=== PATIENT | male | born 1955 | race Caucasian/White ===

== ENCOUNTER 2021-07-08 09:35 | Emergency (ER) | payer MEDICARE ==
[~2021-07-08] VITALS: Ht 185.4 cm; Wt 45.4 kg
[2021-07-08 12:16] VITALS: BP 115/90
== END 2021-07-08 13:16 ==
LOC: ER 10:00
DX: J40 Bronchitis, not specified as acute or chronic (principal); N18.9 Chronic kidney disease, unspecified; Z93.0 Tracheostomy status; Z20.822 Contact with and (suspected) exposure to COVID-19
CPT/HCPCS: 71045; 99284

== ENCOUNTER 2021-07-08 18:03 | Inpatient (IN) | payer MEDICARE ==
[~2021-07-08] VITALS: Ht 188 cm; Wt 54.0 kg
[2021-07-08] MEDS ORDERED: ALBUTEROL SULF 0.083% NEB SOLN 3 ML NEB NEB STA (18:07)
[2021-07-08] MEDS ORDERED: IPRATROPIUM BROMIDE 0.02% 2.5 ML NEB NEB ONE (18:15)
[2021-07-08 18:35] LABS: BASOPHILS # (AUTO) 0.1 (0.0-0.1); BASOPHILS % 0.6 % (0.0-1.0); EOSINOPHILS # (AUTO) 0.1 (0.0-0.4); EOSINOPHILS % 0.6 % (0.0-6.0); HEMATOCRIT 35.2 % (38.2-49.6); HEMOGLOBIN 11.2 g/dL (14.0-18.0); LYMPHOCYTES # (AUTO) 1.1 (1.0-3.2); MEAN CORPUSCULAR HEMOGLOBIN 30.2 pg (28-32); MEAN CORPUSCULAR HGB CONC 31.8 g/dL (31-35); MEAN CORPUSCULAR VOLUME 94.9 fL (81-99); MONOCYTES # (AUTO) 0.7 (0.2-0.8); MONOCYTES % 6.8 % (4.4-11.3); NEUTROPHILS # (AUTO) 8.3 (2.1-6.9); NEUTROPHILS % 80.6 % (38.7-80.0); PLATELET COUNT 319 x10e3/uL (140-360); RED BLOOD COUNT 3.71 x10e6/uL (4.3-5.7); RED CELL DISTRIBUTION WIDTH 14.4 % (11.7-14.4)
[2021-07-08 18:50] LABS: ALBUMIN/GLOBULIN RATIO 0.4 (0.8-2.0); ANION GAP 17.9 mmol/L (8-16); CALCIUM 10.8 mg/dL (8.4-10.2); CREATININE, SERUM 0.97 mg/dL (0.72-1.25)
[2021-07-08 18:56] LABS: CREATINE KINASE MB 1.5 ng/mL (0-5.0)
[2021-07-08 18:57] LABS: POTASSIUM 2.9 mmol/L (3.5-5.1)
[2021-07-08] MEDS ORDERED: POTASSIUM CHLORIDE 20MEQ/15ML UDC PEG ONE (19:00)
[2021-07-08] MEDS ORDERED: CEFTRIAXONE 1 GM in SODIUM CHLORIDE 0.9% 50ML 50 ML IV ONE (19:00)
[2021-07-08] MEDS ORDERED: SODIUM CHLORIDE 0.9% 500ML 500 ML IV ONE (19:00)
[2021-07-08] MEDS ORDERED: SODIUM CHLORIDE 0.9% 500ML 500 ML ONE (19:12)
[2021-07-08] MEDS ORDERED: KCL 20MEQ/.9 SOD CHL 1,000 ML IV ONE (21:00)
[2021-07-08] MEDS ORDERED: DIGOXIN INJ 0.25 MG/ML 2 ML AMP IV ONE (21:15)
[2021-07-08] MEDS ORDERED: METOPROLOL TARTRATE INJ 1 MG/ML VIAL IV PRN (21:15)
[2021-07-08] MEDS ORDERED: METOPROLOL TARTRATE INJ 1 MG/ML VIAL IV ONE (21:15)
[2021-07-08] MEDS ORDERED: Vancomycin IV 1 GM in SODIUM CHLORIDE 0.9% 250ML 250 ML IV ONE (21:15)
[2021-07-08 21:55] LABS: ABG PCO2 47 mmHg (35-45); ABG PH 7.45 (7.35-7.45); ABG PO2 53 mmHg (80-105)
[2021-07-08 21:56] LABS: ABG HCO3 33 mmol/L (22-26); ABG TCO2 34
[2021-07-08] MEDS: CEFEPIME 1 GM in SODIUM CHLORIDE 0.9% 50ML 50 ML IV SCH (22:13)
[2021-07-08] MEDS: ALBUTEROL SULF 0.083% NEB SOLN 3 ML NEB NEB SCH (23:00)
[2021-07-09] VITALS (7 sets, daily range): BP systolic 111–156; BP diastolic 78–100
[2021-07-09] MEDS: IPRATROPIUM BROMIDE 0.02% 2.5 ML NEB NEB SCH ×5 (01:00→22:00)
[2021-07-09] MEDS: ALBUTEROL SULF 0.083% NEB SOLN 3 ML NEB NEB SCH ×6 (03:00→22:00)
[2021-07-09] MEDS ORDERED: IOPAMIDOL 370 MG/ML 200 ML INFUS..BTL INJ ONE (05:00)
[2021-07-09] MEDS ORDERED: SODIUM CHLORIDE 0.9% 50ML 50 ML ONE (05:01)
[2021-07-09 05:43] LABS: BASOPHILS # (AUTO) 0.1 (0.0-0.1); BASOPHILS % 0.7 % (0.0-1.0); EOSINOPHILS # (AUTO) 0.1 (0.0-0.4); EOSINOPHILS % 0.9 % (0.0-6.0); HEMOGLOBIN 9.4 g/dL (14.0-18.0); LYMPHOCYTES # (AUTO) 1.6 (1.0-3.2); LYMPHOCYTES % 19.6 % (18.0-39.1); MEAN CORPUSCULAR HEMOGLOBIN 30.7 pg (28-32); MEAN CORPUSCULAR HGB CONC 32.4 g/dL (31-35); MEAN CORPUSCULAR VOLUME 94.8 fL (81-99); MONOCYTES # (AUTO) 0.6 (0.2-0.8); NEUTROPHILS # (AUTO) 5.8 (2.1-6.9); NEUTROPHILS % 71.3 % (38.7-80.0); PLATELET COUNT 314 x10e3/uL (140-360); RED BLOOD COUNT 3.06 x10e6/uL (4.3-5.7); RED CELL DISTRIBUTION WIDTH 14.5 % (11.7-14.4)
[2021-07-09 06:01] LABS: ANION GAP 15.4 mmol/L (8-16); CALCIUM 10.1 mg/dL (8.4-10.2); CREATININE, SERUM 0.8 mg/dL (0.72-1.25); POTASSIUM 3.4 mmol/L (3.5-5.1)
[2021-07-09] MEDS: LEVOTHYROXINE SODIUM 100 MCG TAB PEG SCH (06:43)
[2021-07-09] MEDS: ACETYLCYSTEINE 20% INHAL SOLN 30 ML VIAL INH SCH ×2 (07:02→21:00)
[2021-07-09] MEDS: FAMOTIDINE 20 MG TAB PEG SCH ×2 (07:55→19:28)
[2021-07-09] MEDS: MIDODRINE 2.5 MG TAB PEG SCH ×3 (07:55→16:00)
[2021-07-09] MEDS: FERROUS SULFATE 325 MG TAB PEG SCH ×2 (07:55→19:28)
[2021-07-09] MEDS: DOCUSATE SODIUM 100 MG CAP PEG SCH ×2 (07:55→17:00)
[2021-07-09] MEDS: CEFEPIME 1 GM in SODIUM CHLORIDE 0.9% 50ML 50 ML IV SCH ×2 (07:55→22:26)
[2021-07-09] MEDS: MULTIVITAMINS 120ML BOTTLE PEG SCH (07:56)
[2021-07-09] MEDS: OLANZAPINE 5 MG TAB PEG SCH ×2 (09:00→22:26)
[2021-07-09] MEDS: ENOXAPARIN SOD INJ 40 MG/0.4 ML SYR SC SCH (19:28)
[2021-07-10] VITALS (28 sets, daily range): BP systolic 68–135; BP diastolic 51–94
[2021-07-10] MEDS ORDERED: ONDANSETRON ODT4 MG GT (01:18)
[2021-07-10] MEDS ORDERED: ULTRAM50 MG GT (01:18)
[2021-07-10] MEDS ORDERED: LEVOTHYROXINE100 MC1 GT (01:18)
[2021-07-10] MEDS ORDERED: DULCOLAX10 MG PR (01:18)
[2021-07-10] MEDS ORDERED: THIAMINE H100 MG/1 M GT (01:18)
[2021-07-10] MEDS ORDERED: LUBRICANT EYE3.5 G1 (01:18)
[2021-07-10] MEDS ORDERED: ASPIRIN81 MG GT (01:18)
[2021-07-10] MEDS ORDERED: ADMELOG SO100 UNIT/1 (01:18)
[2021-07-10] MEDS ORDERED: ACIDOPHILUS1 EAC1 GT (01:18)
[2021-07-10] MEDS ORDERED: CHOLECALCIFEROL1 GM GT (01:18)
[2021-07-10] MEDS ORDERED: HYDRALAZINE HCL10 MG GT (01:18)
[2021-07-10] MEDS ORDERED: ACETAMINOPHEN325 M1 GT (01:18)
[2021-07-10] MEDS ORDERED: LOVENOX30 MG/0.3 SC (01:18)
[2021-07-10] MEDS ORDERED: CETIRIZINE HCL5 MG GT (01:18)
[2021-07-10] MEDS ORDERED: TRANSDERM-SCOP1 EACH TD (01:18)
[2021-07-10] MEDS ORDERED: FOLIC ACID-VIT1 EACH GT (01:18)
[2021-07-10] MEDS ORDERED: ACETYLCYST200 MG/1 M NEB (01:18)
[2021-07-10] MEDS ORDERED: REFRESH PLUS1 EACH (01:18)
[2021-07-10] MEDS ORDERED: FERROUS SULFAT324 MG GT (01:18)
[2021-07-10] MEDS ORDERED: DIGOXIN125 MCG GT (01:18)
[2021-07-10] MEDS ORDERED: MIDODRINE HCL5 MG GT (01:18)
[2021-07-10] MEDS ORDERED: MULTI-VITAMIN1 EACH GT (01:18)
[2021-07-10] MEDS ORDERED: LIDOCAINE 4% TOP (01:18)
[2021-07-10] MEDS ORDERED: DOXYCYCLINE HY100 MG GT (01:18)
[2021-07-10] MEDS ORDERED: OLANZAPINE5 MG GT ×2 (01:18)
[2021-07-10] MEDS ORDERED: LOPERAMIDE2 MG GT (01:18)
[2021-07-10] MEDS ORDERED: NICOTINE PATCH1 EAC1 TD (01:18)
[2021-07-10] MEDS ORDERED: RAMELTEON8 MG GT (01:18)
[2021-07-10] MEDS ORDERED: FAMOTIDINE20 MG GT (01:18)
[2021-07-10] MEDS ORDERED: IPRATROPIU0.2 MG/1 M INH (01:18)
[2021-07-10] MEDS: ALBUTEROL SULF 0.083% NEB SOLN 3 ML NEB NEB SCH ×5 (02:05→19:00)
[2021-07-10] MEDS: LEVOTHYROXINE SODIUM 100 MCG TAB PEG SCH (06:22)
[2021-07-10] MEDS: FAMOTIDINE 20 MG TAB PEG SCH ×2 (07:30→17:22)
[2021-07-10] MEDS: IPRATROPIUM BROMIDE 0.02% 2.5 ML NEB NEB SCH ×3 (07:53→19:00)
[2021-07-10] MEDS: MIDODRINE 2.5 MG TAB PEG SCH ×3 (08:00→17:22)
[2021-07-10] MEDS: FERROUS SULFATE 325 MG TAB PEG SCH ×2 (08:00→17:22)
[2021-07-10] MEDS: DOCUSATE SODIUM 100 MG CAP PEG SCH (08:44)
[2021-07-10] MEDS: OLANZAPINE 5 MG TAB PEG SCH ×2 (08:44→21:25)
[2021-07-10] MEDS: MULTIVITAMINS 120ML BOTTLE PEG SCH (08:44)
[2021-07-10] MEDS: CEFEPIME 1 GM in SODIUM CHLORIDE 0.9% 50ML 50 ML IV SCH ×2 (10:18→21:25)
[2021-07-10] MEDS ORDERED: MIDAZOLAM HCL 2 MG/2 ML VIAL ONE (13:00)
[2021-07-10] MEDS ORDERED: LORAZEPAM INJ 2 MG/ML VIAL IV ONE (16:00)
[2021-07-10] MEDS: ENOXAPARIN SOD INJ 40 MG/0.4 ML SYR SC SCH (17:22)
[2021-07-10] MEDS ORDERED: DEXMEDETOMIDINE 400MCG/NS100ML 100 ML IV PRN (17:30)
[2021-07-10] MEDS: ACETYLCYSTEINE 200 MG/ML 4ML VIAL INH SCH (19:00)
[2021-07-11] VITALS (24 sets, daily range): BP systolic 70–104; BP diastolic 51–72
[2021-07-11 05:01] LABS: BASOPHILS # (AUTO) 0.1 (0.0-0.1); BASOPHILS % 0.8 % (0.0-1.0); EOSINOPHILS # (AUTO) 0.1 (0.0-0.4); EOSINOPHILS % 0.5 % (0.0-6.0); HEMATOCRIT 31.4 % (38.2-49.6); LYMPHOCYTES # (AUTO) 1.7 (1.0-3.2); LYMPHOCYTES % 15.8 % (18.0-39.1); MEAN CORPUSCULAR HEMOGLOBIN 30.5 pg (28-32); MEAN CORPUSCULAR HGB CONC 31.8 g/dL (31-35); MEAN CORPUSCULAR VOLUME 95.7 fL (81-99); MONOCYTES # (AUTO) 0.6 (0.2-0.8); MONOCYTES % 5.9 % (4.4-11.3); NEUTROPHILS # (AUTO) 8.3 (2.1-6.9); NEUTROPHILS % 76.5 % (38.7-80.0); PLATELET COUNT 332 x10e3/uL (140-360); RED BLOOD COUNT 3.28 x10e6/uL (4.3-5.7); RED CELL DISTRIBUTION WIDTH 14.6 % (11.7-14.4)
[2021-07-11 05:37] LABS: ALBUMIN 2.6 g/dL (3.5-5.0); ALBUMIN/GLOBULIN RATIO 0.4 (0.8-2.0); ANION GAP 17.8 mmol/L (8-16); CREATININE, SERUM 0.91 mg/dL (0.72-1.25); POTASSIUM 3.8 mmol/L (3.5-5.1)
[2021-07-11] MEDS: LEVOTHYROXINE SODIUM 100 MCG TAB PEG SCH (06:00)
[2021-07-11] MEDS: ALBUTEROL SULF 0.083% NEB SOLN 3 ML NEB NEB SCH ×5 (07:01→23:30)
[2021-07-11] MEDS: IPRATROPIUM BROMIDE 0.02% 2.5 ML NEB NEB SCH ×3 (07:01→19:25)
[2021-07-11] MEDS: ACETYLCYSTEINE 200 MG/ML 4ML VIAL INH SCH ×2 (07:01→19:25)
[2021-07-11] MEDS: FERROUS SULFATE 325 MG TAB PEG SCH ×2 (09:15→16:17)
[2021-07-11] MEDS: FAMOTIDINE 20 MG TAB PEG SCH ×2 (09:15→16:17)
[2021-07-11] MEDS: CEFEPIME 1 GM in SODIUM CHLORIDE 0.9% 50ML 50 ML IV SCH ×2 (09:16→21:14)
[2021-07-11] MEDS: BALSAM PERU/CASTOR OIL 60 GM OINT...G. TP SCH (09:16)
[2021-07-11] MEDS: MIDODRINE 2.5 MG TAB PEG SCH ×3 (09:16→16:17)
[2021-07-11] MEDS: OLANZAPINE 5 MG TAB PEG SCH ×2 (09:16→21:14)
[2021-07-11 12:00] LABS: ABG HCO3 25 mmol/L (22-26); ABG PCO2 40 mmHg (35-45); ABG PH 7.39 (7.35-7.45); ABG PO2 52 mmHg (80-105); ABG TCO2 26
[2021-07-11] MEDS: ENOXAPARIN SOD INJ 40 MG/0.4 ML SYR SC SCH (16:17)
[2021-07-12] VITALS (17 sets, daily range): BP systolic 73–127; BP diastolic 51–83
[2021-07-12] MEDS: IPRATROPIUM BROMIDE 0.02% 2.5 ML NEB NEB SCH ×4 (02:40→20:05)
[2021-07-12] MEDS: ALBUTEROL SULF 0.083% NEB SOLN 3 ML NEB NEB SCH ×7 (02:40→22:54)
[2021-07-12 05:15] LABS: BASOPHILS # (AUTO) 0.1 (0.0-0.1); BASOPHILS % 0.7 % (0.0-1.0); EOSINOPHILS # (AUTO) 0.4 (0.0-0.4); EOSINOPHILS % 4.9 % (0.0-6.0); HEMATOCRIT 28.7 % (38.2-49.6); LYMPHOCYTES # (AUTO) 1.5 (1.0-3.2); LYMPHOCYTES % 18.8 % (18.0-39.1); MEAN CORPUSCULAR HEMOGLOBIN 30.4 pg (28-32); MEAN CORPUSCULAR HGB CONC 31.4 g/dL (31-35); MONOCYTES # (AUTO) 0.6 (0.2-0.8); MONOCYTES % 6.8 % (4.4-11.3); NEUTROPHILS # (AUTO) 5.6 (2.1-6.9); NEUTROPHILS % 68.4 % (38.7-80.0); PLATELET COUNT 288 x10e3/uL (140-360); RED BLOOD COUNT 2.96 x10e6/uL (4.3-5.7); RED CELL DISTRIBUTION WIDTH 14.9 % (11.7-14.4)
[2021-07-12 05:42] LABS: ALBUMIN 2.5 g/dL (3.5-5.0); ALBUMIN/GLOBULIN RATIO 0.4 (0.8-2.0); ANION GAP 15.3 mmol/L (8-16); CALCIUM 10.2 mg/dL (8.4-10.2); CREATININE, SERUM 0.83 mg/dL (0.72-1.25); POTASSIUM 3.3 mmol/L (3.5-5.1)
[2021-07-12] MEDS: LEVOTHYROXINE SODIUM 100 MCG TAB PEG SCH (06:30)
[2021-07-12] MEDS: ACETYLCYSTEINE 200 MG/ML 4ML VIAL INH SCH ×2 (08:14→20:05)
[2021-07-12] MEDS: FERROUS SULFATE 325 MG TAB PEG SCH ×2 (08:26→17:21)
[2021-07-12] MEDS: OLANZAPINE 5 MG TAB PEG SCH ×2 (08:26→21:18)
[2021-07-12] MEDS: MIDODRINE 2.5 MG TAB PEG SCH ×3 (08:26→16:08)
[2021-07-12] MEDS: MULTIVITAMINS 5 ML LIQUID PEG SCH (08:26)
[2021-07-12] MEDS: BALSAM PERU/CASTOR OIL 60 GM OINT...G. TP SCH (08:26)
[2021-07-12] MEDS: FAMOTIDINE 20 MG TAB PEG SCH (08:26)
[2021-07-12] MEDS: CEFEPIME 1 GM in SODIUM CHLORIDE 0.9% 50ML 50 ML IV SCH ×2 (08:26→21:21)
[2021-07-12] MEDS ORDERED: KCL 20 MEQ PACKET/ ORAL SOLN NG ONE (15:15)
[2021-07-12] MEDS ORDERED: SODIUM CHLORIDE 0.9% 250ML 250 ML ONE (16:50)
[2021-07-12] MEDS: ENOXAPARIN SOD INJ 40 MG/0.4 ML SYR SC SCH (17:21)
[2021-07-12] MEDS: FAMOTIDINE 20 MG/2 ML VIAL IV SCH (21:18)
[2021-07-13] VITALS (17 sets, daily range): BP systolic 93–127; BP diastolic 67–82
[2021-07-13] MEDS: ALBUTEROL SULF 0.083% NEB SOLN 3 ML NEB NEB SCH ×7 (03:20→19:30)
[2021-07-13] MEDS: IPRATROPIUM BROMIDE 0.02% 2.5 ML NEB NEB SCH ×4 (03:20→18:30)
[2021-07-13] MEDS: LEVOTHYROXINE SODIUM 100 MCG TAB PEG SCH (06:00)
[2021-07-13] MEDS: ACETYLCYSTEINE 200 MG/ML 4ML VIAL INH SCH ×2 (07:32→18:30)
[2021-07-13] MEDS: BALSAM PERU/CASTOR OIL 60 GM OINT...G. TP SCH (07:33)
[2021-07-13] MEDS: FERROUS SULFATE 325 MG TAB PEG SCH ×2 (08:34→16:15)
[2021-07-13] MEDS: MIDODRINE 2.5 MG TAB PEG SCH ×4 (08:34→16:14)
[2021-07-13] MEDS: OLANZAPINE 5 MG TAB PEG SCH ×2 (08:40→21:25)
[2021-07-13] MEDS: CEFEPIME 1 GM in SODIUM CHLORIDE 0.9% 50ML 50 ML IV SCH ×2 (08:40→21:25)
[2021-07-13] MEDS: MULTIVITAMINS 5 ML LIQUID PEG SCH (08:40)
[2021-07-13] MEDS: FAMOTIDINE 20 MG/2 ML VIAL IV SCH ×2 (08:40→16:14)
[2021-07-13] MEDS: ENOXAPARIN SOD INJ 40 MG/0.4 ML SYR SC SCH (16:15)
[2021-07-13] MEDS: EYE LUBRICANT OPTH OINT 3.5GM TUBE OP SCH (16:15)
[2021-07-14] VITALS (27 sets, daily range): BP systolic 89–129; BP diastolic 60–82
[2021-07-14] MEDS: ALBUTEROL SULF 0.083% NEB SOLN 3 ML NEB NEB SCH ×5 (02:09→18:57)
[2021-07-14] MEDS: IPRATROPIUM BROMIDE 0.02% 2.5 ML NEB NEB SCH ×4 (02:09→18:57)
[2021-07-14] MEDS: LEVOTHYROXINE SODIUM 100 MCG TAB PEG SCH (06:34)
[2021-07-14] MEDS: ACETYLCYSTEINE 200 MG/ML 4ML VIAL INH SCH ×2 (08:39→18:57)
[2021-07-14] MEDS: MIDODRINE 2.5 MG TAB PEG SCH (08:41)
[2021-07-14] MEDS: FERROUS SULFATE 325 MG TAB PEG SCH ×2 (08:41→16:09)
[2021-07-14] MEDS: OLANZAPINE 5 MG TAB PEG SCH ×2 (08:42→21:30)
[2021-07-14] MEDS: MULTIVITAMINS 5 ML LIQUID PEG SCH (08:42)
[2021-07-14] MEDS: FAMOTIDINE 20 MG/2 ML VIAL IV SCH ×2 (08:42→16:09)
[2021-07-14] MEDS: CEFEPIME 1 GM in SODIUM CHLORIDE 0.9% 50ML 50 ML IV SCH ×2 (08:42→21:30)
[2021-07-14] MEDS: EYE LUBRICANT OPTH OINT 3.5GM TUBE OP SCH ×2 (08:42→15:44)
[2021-07-14] MEDS: BALSAM PERU/CASTOR OIL 60 GM OINT...G. TP SCH (08:42)
[2021-07-14] MEDS ORDERED: IPRATROPIUM BROMIDE 0.02% 2.5 ML NEB ONE ×2 (09:10→10:59)
[2021-07-14 10:40] LABS: ABG HCO3 30 mmol/L (22-26); ABG PCO2 47 mmHg (35-45); ABG PH 7.41 (7.35-7.45); ABG PO2 89 mmHg (80-105); ABG TCO2 31
[2021-07-14] MEDS: MIDODRINE HCL 5 MG TABLET PEG SCH ×2 (11:59→15:34)
[2021-07-14] MEDS: ENOXAPARIN SOD INJ 40 MG/0.4 ML SYR SC SCH (16:09)
[2021-07-15] VITALS (25 sets, daily range): BP systolic 82–134; BP diastolic 58–78
[2021-07-15] MEDS: ALBUTEROL SULF 0.083% NEB SOLN 3 ML NEB NEB SCH ×7 (00:22→23:25)
[2021-07-15] MEDS: IPRATROPIUM BROMIDE 0.02% 2.5 ML NEB NEB SCH ×4 (03:44→20:00)
[2021-07-15] MEDS: LEVOTHYROXINE SODIUM 100 MCG TAB PEG SCH (06:07)
[2021-07-15] MEDS: ACETYLCYSTEINE 200 MG/ML 4ML VIAL INH SCH ×2 (07:45→20:00)
[2021-07-15] MEDS ORDERED: IPRATROPIUM BROMIDE 0.02% 2.5 ML NEB ONE ×2 (08:01→15:35)
[2021-07-15] MEDS: MIDODRINE HCL 5 MG TABLET PEG SCH ×3 (08:02→16:10)
[2021-07-15] MEDS: FERROUS SULFATE 325 MG TAB PEG SCH ×2 (08:02→16:45)
[2021-07-15] MEDS: MULTIVITAMINS 5 ML LIQUID PEG SCH (08:09)
[2021-07-15] MEDS: FAMOTIDINE 20 MG/2 ML VIAL IV SCH ×2 (08:09→16:45)
[2021-07-15] MEDS: CEFEPIME 1 GM in SODIUM CHLORIDE 0.9% 50ML 50 ML IV SCH ×2 (08:09→20:50)
[2021-07-15] MEDS: EYE LUBRICANT OPTH OINT 3.5GM TUBE OP SCH ×2 (08:09→16:33)
[2021-07-15] MEDS: BALSAM PERU/CASTOR OIL 60 GM OINT...G. TP SCH (08:09)
[2021-07-15] MEDS: OLANZAPINE 5 MG TAB PEG SCH ×2 (08:09→20:50)
[2021-07-15] MEDS: ACETAMINOPHEN 325 MG TAB PEG PRN (13:32)
[2021-07-15] MEDS: ENOXAPARIN SOD INJ 40 MG/0.4 ML SYR SC SCH (16:45)
[2021-07-16] VITALS (24 sets, daily range): BP systolic 89–130; BP diastolic 64–80
[2021-07-16] MEDS: ALBUTEROL SULF 0.083% NEB SOLN 3 ML NEB NEB SCH ×6 (02:30→23:40)
[2021-07-16] MEDS: IPRATROPIUM BROMIDE 0.02% 2.5 ML NEB NEB SCH ×4 (02:30→20:10)
[2021-07-16] MEDS: LEVOTHYROXINE SODIUM 100 MCG TAB PEG SCH (05:33)
[2021-07-16 06:33] LABS: BASOPHILS # (AUTO) 0.1 (0.0-0.1); EOSINOPHILS # (AUTO) 0.2 (0.0-0.4); EOSINOPHILS % 2.5 % (0.0-6.0); HEMATOCRIT 30.1 % (38.2-49.6); HEMOGLOBIN 9.7 g/dL (14.0-18.0); LYMPHOCYTES # (AUTO) 1.4 (1.0-3.2); LYMPHOCYTES % 16.6 % (18.0-39.1); MEAN CORPUSCULAR HEMOGLOBIN 30.5 pg (28-32); MEAN CORPUSCULAR HGB CONC 32.2 g/dL (31-35); MEAN CORPUSCULAR VOLUME 94.7 fL (81-99); MONOCYTES # (AUTO) 0.5 (0.2-0.8); MONOCYTES % 6.3 % (4.4-11.3); NEUTROPHILS # (AUTO) 6.1 (2.1-6.9); PLATELET COUNT 313 x10e3/uL (140-360); RED BLOOD COUNT 3.18 x10e6/uL (4.3-5.7); RED CELL DISTRIBUTION WIDTH 14.4 % (11.7-14.4)
[2021-07-16 06:39] LABS: ALBUMIN 2.3 g/dL (3.5-5.0); ALBUMIN/GLOBULIN RATIO 0.4 (0.8-2.0); ANION GAP 13.4 mmol/L (8-16); CALCIUM 10.3 mg/dL (8.4-10.2); CREATININE, SERUM 0.75 mg/dL (0.72-1.25); POTASSIUM 4.4 mmol/L (3.5-5.1)
[2021-07-16] MEDS: ACETYLCYSTEINE 200 MG/ML 4ML VIAL INH SCH ×2 (07:02→20:10)
[2021-07-16] MEDS ORDERED: IPRATROPIUM BROMIDE 0.02% 2.5 ML NEB ONE ×3 (07:28→14:19)
[2021-07-16] MEDS: FERROUS SULFATE 325 MG TAB PEG SCH ×2 (08:03→16:05)
[2021-07-16] MEDS: MIDODRINE HCL 5 MG TABLET PEG SCH ×3 (08:03→15:54)
[2021-07-16] MEDS: FAMOTIDINE 20 MG/2 ML VIAL IV SCH ×2 (08:03→14:40)
[2021-07-16] MEDS: CEFEPIME 1 GM in SODIUM CHLORIDE 0.9% 50ML 50 ML IV SCH ×2 (08:03→22:31)
[2021-07-16] MEDS: OLANZAPINE 5 MG TAB PEG SCH ×2 (08:04→22:31)
[2021-07-16] MEDS: EYE LUBRICANT OPTH OINT 3.5GM TUBE OP SCH ×2 (08:04→16:05)
[2021-07-16] MEDS: MULTIVITAMINS 5 ML LIQUID PEG SCH (08:04)
[2021-07-16] MEDS: BALSAM PERU/CASTOR OIL 60 GM OINT...G. TP SCH (08:04)
[2021-07-16] MEDS: ACETAMINOPHEN 325 MG TAB PEG PRN (11:51)
[2021-07-17] VITALS (24 sets, daily range): BP systolic 90–129; BP diastolic 54–79
[2021-07-17] MEDS: ALBUTEROL SULF 0.083% NEB SOLN 3 ML NEB NEB SCH ×6 (00:20→20:00)
[2021-07-17] MEDS: IPRATROPIUM BROMIDE 0.02% 2.5 ML NEB NEB SCH ×4 (01:00→20:00)
[2021-07-17] MEDS: LEVOTHYROXINE SODIUM 100 MCG TAB PEG SCH (06:17)
[2021-07-17 06:31] LABS: BASOPHILS # (AUTO) 0.1 (0.0-0.1); EOSINOPHILS # (AUTO) 0.2 (0.0-0.4); EOSINOPHILS % 2.9 % (0.0-6.0); HEMATOCRIT 28.9 % (38.2-49.6); HEMOGLOBIN 9.3 g/dL (14.0-18.0); LYMPHOCYTES # (AUTO) 1.4 (1.0-3.2); LYMPHOCYTES % 22.5 % (18.0-39.1); MEAN CORPUSCULAR HEMOGLOBIN 30.2 pg (28-32); MEAN CORPUSCULAR HGB CONC 32.2 g/dL (31-35); MEAN CORPUSCULAR VOLUME 93.8 fL (81-99); MONOCYTES # (AUTO) 0.5 (0.2-0.8); MONOCYTES % 7.6 % (4.4-11.3); NEUTROPHILS # (AUTO) 4.1 (2.1-6.9); NEUTROPHILS % 65.7 % (38.7-80.0); PLATELET COUNT 282 x10e3/uL (140-360); RED BLOOD COUNT 3.08 x10e6/uL (4.3-5.7); RED CELL DISTRIBUTION WIDTH 14.4 % (11.7-14.4)
[2021-07-17 06:52] LABS: ANION GAP 12.6 mmol/L (8-16); CALCIUM 10.3 mg/dL (8.4-10.2); CREATININE, SERUM 0.77 mg/dL (0.72-1.25); POTASSIUM 4.6 mmol/L (3.5-5.1)
[2021-07-17] MEDS: ACETYLCYSTEINE 200 MG/ML 4ML VIAL INH SCH (07:46)
[2021-07-17] MEDS ORDERED: IPRATROPIUM BROMIDE 0.02% 2.5 ML NEB ONE (07:59)
[2021-07-17] MEDS: MIDODRINE HCL 5 MG TABLET PEG SCH ×3 (08:24→17:00)
[2021-07-17] MEDS: EYE LUBRICANT OPTH OINT 3.5GM TUBE OP SCH ×2 (08:24→17:00)
[2021-07-17] MEDS: MULTIVITAMINS 5 ML LIQUID PEG SCH (08:24)
[2021-07-17] MEDS: FAMOTIDINE 20 MG/2 ML VIAL IV SCH (08:24)
[2021-07-17] MEDS: CEFEPIME 1 GM in SODIUM CHLORIDE 0.9% 50ML 50 ML IV SCH ×2 (08:24→21:10)
[2021-07-17] MEDS: OLANZAPINE 5 MG TAB PEG SCH ×2 (08:24→21:10)
[2021-07-17] MEDS: BALSAM PERU/CASTOR OIL 60 GM OINT...G. TP SCH (08:24)
[2021-07-17] MEDS: FERROUS SULFATE 325 MG TAB PEG SCH ×2 (08:24→17:00)
[2021-07-17] MEDS: ACETAMINOPHEN 325 MG TAB PEG PRN (12:22)
[2021-07-17] MEDS: ENOXAPARIN SOD INJ 40 MG/0.4 ML SYR SC SCH (17:00)
[2021-07-17] MEDS ORDERED: SODIUM CHLORIDE 0.9% 100 ML ONE (20:59)
[2021-07-18] VITALS (14 sets, daily range): BP systolic 94–120; BP diastolic 62–97
[2021-07-18] MEDS: IPRATROPIUM BROMIDE 0.02% 2.5 ML NEB NEB SCH ×4 (00:20→19:50)
[2021-07-18 04:51] LABS: BASOPHILS # (AUTO) 0.1 (0.0-0.1); BASOPHILS % 0.7 % (0.0-1.0); EOSINOPHILS # (AUTO) 0.2 (0.0-0.4); EOSINOPHILS % 2.5 % (0.0-6.0); HEMATOCRIT 30.5 % (38.2-49.6); HEMOGLOBIN 9.9 g/dL (14.0-18.0); LYMPHOCYTES # (AUTO) 1.3 (1.0-3.2); LYMPHOCYTES % 18.9 % (18.0-39.1); MEAN CORPUSCULAR HEMOGLOBIN 30.5 pg (28-32); MEAN CORPUSCULAR HGB CONC 32.5 g/dL (31-35); MEAN CORPUSCULAR VOLUME 93.8 fL (81-99); MONOCYTES # (AUTO) 0.4 (0.2-0.8); MONOCYTES % 6.3 % (4.4-11.3); NEUTROPHILS # (AUTO) 4.9 (2.1-6.9); NEUTROPHILS % 71.3 % (38.7-80.0); PLATELET COUNT 299 x10e3/uL (140-360); RED BLOOD COUNT 3.25 x10e6/uL (4.3-5.7); RED CELL DISTRIBUTION WIDTH 14.3 % (11.7-14.4)
[2021-07-18] MEDS: ALBUTEROL SULF 0.083% NEB SOLN 3 ML NEB NEB SCH ×5 (05:00→19:50)
[2021-07-18 05:26] LABS: ANION GAP 13.7 mmol/L (8-16); CALCIUM 10.7 mg/dL (8.4-10.2); CREATININE, SERUM 0.79 mg/dL (0.72-1.25); POTASSIUM 4.7 mmol/L (3.5-5.1)
[2021-07-18] MEDS: LEVOTHYROXINE SODIUM 100 MCG TAB PEG SCH (06:11)
[2021-07-18] MEDS: MIDODRINE HCL 5 MG TABLET PEG SCH ×3 (08:11→16:02)
[2021-07-18] MEDS: FERROUS SULFATE 325 MG TAB PEG SCH ×2 (08:11→16:02)
[2021-07-18] MEDS: OLANZAPINE 5 MG TAB PEG SCH ×2 (08:48→20:29)
[2021-07-18] MEDS: EYE LUBRICANT OPTH OINT 3.5GM TUBE OP SCH ×2 (08:48→16:13)
[2021-07-18] MEDS: CEFEPIME 1 GM in SODIUM CHLORIDE 0.9% 50ML 50 ML IV SCH ×2 (08:48→20:25)
[2021-07-18] MEDS: BALSAM PERU/CASTOR OIL 60 GM OINT...G. TP SCH (08:48)
[2021-07-18] MEDS: MULTIVITAMINS 5 ML LIQUID PEG SCH (08:48)
[2021-07-18] MEDS: ENOXAPARIN SOD INJ 40 MG/0.4 ML SYR SC SCH (16:06)
[2021-07-19] VITALS (16 sets, daily range): BP systolic 91–123; BP diastolic 62–78
[2021-07-19] MEDS: IPRATROPIUM BROMIDE 0.02% 2.5 ML NEB NEB SCH ×3 (02:24→10:00)
[2021-07-19] MEDS: ALBUTEROL SULF 0.083% NEB SOLN 3 ML NEB NEB SCH ×4 (02:26→10:00)
[2021-07-19] MEDS: LEVOTHYROXINE SODIUM 100 MCG TAB PEG SCH (06:00)
[2021-07-19 06:33] LABS: BASOPHILS # (AUTO) 0.1 (0.0-0.1); BASOPHILS % 0.7 % (0.0-1.0); EOSINOPHILS # (AUTO) 0.1 (0.0-0.4); EOSINOPHILS % 1.3 % (0.0-6.0); HEMATOCRIT 34.8 % (38.2-49.6); HEMOGLOBIN 11.2 g/dL (14.0-18.0); LYMPHOCYTES # (AUTO) 1.2 (1.0-3.2); LYMPHOCYTES % 11.8 % (18.0-39.1); MEAN CORPUSCULAR HEMOGLOBIN 30.7 pg (28-32); MEAN CORPUSCULAR HGB CONC 32.2 g/dL (31-35); MEAN CORPUSCULAR VOLUME 95.3 fL (81-99); MONOCYTES # (AUTO) 0.6 (0.2-0.8); MONOCYTES % 6.1 % (4.4-11.3); NEUTROPHILS # (AUTO) 8.3 (2.1-6.9); NEUTROPHILS % 79.8 % (38.7-80.0); PLATELET COUNT 343 x10e3/uL (140-360); RED BLOOD COUNT 3.65 x10e6/uL (4.3-5.7); RED CELL DISTRIBUTION WIDTH 14.6 % (11.7-14.4)
[2021-07-19 06:58] LABS: ALBUMIN 2.8 g/dL (3.5-5.0); ALBUMIN/GLOBULIN RATIO 0.4 (0.8-2.0); ANION GAP 11.7 mmol/L (8-16); CALCIUM 11.2 mg/dL (8.4-10.2); CREATININE, SERUM 0.81 mg/dL (0.72-1.25); POTASSIUM 4.7 mmol/L (3.5-5.1)
[2021-07-19] MEDS: FERROUS SULFATE 325 MG TAB PEG SCH (08:06)
[2021-07-19] MEDS: MIDODRINE HCL 5 MG TABLET PEG SCH ×2 (08:06→11:54)
[2021-07-19] MEDS: OLANZAPINE 5 MG TAB PEG SCH (08:22)
[2021-07-19] MEDS: MULTIVITAMINS 5 ML LIQUID PEG SCH (08:22)
[2021-07-19] MEDS: EYE LUBRICANT OPTH OINT 3.5GM TUBE OP SCH (08:22)
[2021-07-19] MEDS: BALSAM PERU/CASTOR OIL 60 GM OINT...G. TP SCH (08:22)
== END 2021-07-19 14:59 | DRG 871 ==
LOC: ER 18:10 → ERHOLD 22:01 → ICU 07-09 21:43
PROVIDERS: ADMIT Internal Medicine; ATTEND Internal Medicine
PROC: 5A1935Z Respiratory Ventilation, Less than 24 Consecutive Hours (ICD-10-PCS; 2021-07-08)
PROC: 5A1935Z Respiratory Ventilation, Less than 24 Consecutive Hours (ICD-10-PCS; 2021-07-09)
PROC: 0B928ZZ Drainage of Carina, Via Natural or Artificial Opening Endoscopic (ICD-10-PCS; principal; 2021-07-10)
PROC: 0B978ZZ Drainage of Left Main Bronchus, Via Natural or Artificial Opening Endoscopic (ICD-10-PCS; 2021-07-10)
PROC: 0B9B8ZZ Drainage of Left Lower Lobe Bronchus, Via Natural or Artificial Opening Endoscopic (ICD-10-PCS; 2021-07-10)
PROC: 0B21XFZ Change Tracheostomy Device in Trachea, External Approach (ICD-10-PCS; 2021-07-10)
PROC: 5A1945Z Respiratory Ventilation, 24-96 Consecutive Hours (ICD-10-PCS; 2021-07-10)
PROC: 5A1935Z Respiratory Ventilation, Less than 24 Consecutive Hours (ICD-10-PCS; 2021-07-12)
PROC: 5A1935Z Respiratory Ventilation, Less than 24 Consecutive Hours (ICD-10-PCS; 2021-07-13)
PROC: 5A1935Z Respiratory Ventilation, Less than 24 Consecutive Hours (ICD-10-PCS; 2021-07-14)
DX: A41.9 Sepsis, unspecified organism (principal); J18.9 Pneumonia, unspecified organism; J96.22 Acute and chronic respiratory failure with hypercapnia; J96.21 Acute and chronic respiratory failure with hypoxia; I50.23 Acute on chronic systolic (congestive) heart failure; E43 Unspecified severe protein-calorie malnutrition; J91.8 Pleural effusion in other conditions classified elsewhere; J95.03 Malfunction of tracheostomy stoma; I48.20 Chronic atrial fibrillation, unspecified; Z68.1 Body mass index [BMI] 19.9 or less, adult; R65.20 Severe sepsis without septic shock; D64.9 Anemia, unspecified; N18.9 Chronic kidney disease, unspecified; D63.8 Anemia in other chronic diseases classified elsewhere; E03.9 Hypothyroidism, unspecified; R13.10 Dysphagia, unspecified; Z93.1 Gastrostomy status; H16.212 Exposure keratoconjunctivitis, left eye; C76.0 Malignant neoplasm of head, face and neck; B96.89 Other specified bacterial agents as the cause of diseases classified elsewhere; Z20.822 Contact with and (suspected) exposure to COVID-19; Y95 Nosocomial condition
CPT/HCPCS: 36415; 36600; 71045; 71260; 80048; 80053; 82550; 82553; 82805; 82948; 83605; 84132; 84484; 85025; 87040; 87070; 87186; 87205; 93005; 94002; 94003; 94640; 97139; 99251; 99285; J0692; J0696; J1650; J2060; J2250; J3370; J7040; J7050; Q9967; U0002

== ENCOUNTER 2021-08-05 13:28 | Inpatient (IN) | payer MEDICARE ==
[~2021-08-05] VITALS: Ht 167.6 cm; Wt 54.0 kg
[~2021-08-05 13:28] MED LIST: ACETAMINOPHEN325 M1 GT; ACETYLCYST200 MG/1 M NEB; ACIDOPHILUS1 EAC1 GT; ADMELOG SO100 UNIT/1; ASPIRIN81 MG GT; CETIRIZINE HCL5 MG GT; CHOLECALCIFEROL1 GM GT; DIGOXIN125 MCG GT; DOXYCYCLINE HY100 MG GT; DULCOLAX10 MG PR; FAMOTIDINE20 MG GT; FERROUS SULFAT324 MG GT; FOLIC ACID-VIT1 EACH GT; HYDRALAZINE HCL10 MG GT; IPRATROPIU0.2 MG/1 M INH; LEVOTHYROXINE100 MC1 GT; LIDOCAINE 4% TOP; LOPERAMIDE2 MG GT; LOVENOX30 MG/0.3 SC; LUBRICANT EYE3.5 G1; MIDODRINE HCL5 MG GT; MULTI-VITAMIN1 EACH GT; NICOTINE PATCH1 EAC1 TD; OLANZAPINE5 MG GT; ONDANSETRON ODT4 MG GT; RAMELTEON8 MG GT; REFRESH PLUS1 EACH; THIAMINE H100 MG/1 M GT; TRANSDERM-SCOP1 EACH TD; ULTRAM50 MG GT
[2021-08-05] MEDS ORDERED: SODIUM CHLORIDE 0.9% 1000ML 1,000 ML IV STA ×3 (13:55→18:19)
[2021-08-05] MEDS ORDERED: SODIUM CHLORIDE 0.9% 1000ML 1,000 ML ONE (14:04)
[2021-08-05] MEDS ORDERED: ACETAMINOPHEN 650 MG SUPP PR ONE (14:15)
[2021-08-05 14:22] LABS: BASOPHILS # (AUTO) 0.1 (0.0-0.1); BASOPHILS % 0.4 % (0.0-1.0); EOSINOPHILS % 0.1 % (0.0-6.0); HEMATOCRIT 38.5 % (38.2-49.6); HEMOGLOBIN 12.4 g/dL (14.0-18.0); LYMPHOCYTES # (AUTO) 0.9 (1.0-3.2); LYMPHOCYTES % 5.6 % (18.0-39.1); MEAN CORPUSCULAR HEMOGLOBIN 30.3 pg (28-32); MEAN CORPUSCULAR HGB CONC 32.2 g/dL (31-35); MEAN CORPUSCULAR VOLUME 94.1 fL (81-99); MONOCYTES # (AUTO) 0.6 (0.2-0.8); MONOCYTES % 3.6 % (4.4-11.3); NEUTROPHILS # (AUTO) 14.6 (2.1-6.9); NEUTROPHILS % 89.8 % (38.7-80.0); PLATELET COUNT 299 x10e3/uL (140-360); RED BLOOD COUNT 4.09 x10e6/uL (4.3-5.7)
[2021-08-05 14:42] LABS: ABG PCO2 32 mmHg (35-45); ABG PH 7.52 (7.35-7.45)
[2021-08-05 14:43] LABS: ABG HCO3 26 mmol/L (22-26); ABG PO2 60 mmHg (80-105); ABG TCO2 27
[2021-08-05 14:48] LABS: ALBUMIN 2.6 g/dL (3.5-5.0); ALBUMIN/GLOBULIN RATIO 0.3 (0.8-2.0); ANION GAP 18.5 mmol/L (8-16); CALCIUM 11.5 mg/dL (8.4-10.2); CREATININE, SERUM 1.3 mg/dL (0.72-1.25); POTASSIUM 5.5 mmol/L (3.5-5.1)
[2021-08-05 14:58] LABS: CREATINE KINASE MB 0.8 ng/mL (0-5.0)
[2021-08-05] MEDS ORDERED: MEROPENEM 1 GM in SODIUM CHLORIDE 0.9% 100 ML 100 ML IV ONE (15:00)
[2021-08-05] MEDS ORDERED: Vancomycin IV 1 GM in SODIUM CHLORIDE 0.9% 250ML 250 ML IV ONE (15:00)
[2021-08-05 15:04] LABS: INR 1.08; PROTHROMBIN TIME 14.2 seconds (11.9-14.5)
[2021-08-05 15:05] LABS: PARTIAL THROMBOPLASTIN TIME 31.6 seconds (23.8-35.5)
[2021-08-05] MEDS ORDERED: MEROPENEM 1 GM in SODIUM CHLORIDE 0.9% 100 ML IV ONE (16:45)
[2021-08-05] MEDS ORDERED: IPRATROPIUM BROMIDE 0.02% 2.5 ML NEB INH PRN (17:30)
[2021-08-05] MEDS ORDERED: BISACODYL 10 MG SUPP PR PRN (17:30)
[2021-08-05] MEDS ORDERED: ACETAMINOPHEN 325 MG TAB GT PRN (17:30)
[2021-08-05 17:41] LABS: CLARITY,URINE HAZY (CLEAR); COLOR,URINE YELLOW (YELLOW); KETONES,URINE NEGATIVE (NEGATIVE); LEUKOCYTE ESTERASE ,URINE SMALL (NEGATIVE); NITRITE,URINE NEGATIVE (NEGATIVE); PROTEIN,URINE DIPSTICK 1+ (NEGATIVE); URINE UROBILINOGEN 0.2 mg/dL (0.2 - 1)
[2021-08-05 17:43] LABS: BACTERIA,URINE MODERATE /HPF; EPITHELIAL CELLS,URINE FEW /LPF
[2021-08-05 17:44] LABS: AMORPHOUS SEDIMENT,URINE FEW (FEW); CALCIUM OXALATE CRYSTALS,UR FEW (FEW)
[2021-08-05] MEDS ORDERED: ALBUTEROL SULF 0.083% NEB SOLN 3 ML NEB NEB PRN (17:45)
[2021-08-05] MEDS ORDERED: IPRATROPIUM BROMIDE 0.02% 2.5 ML NEB NEB PRN (17:45)
[2021-08-05] MEDS ORDERED: ACETYLCYSTEINE 20% INHAL SOLN 30 ML VIAL INH PRN (17:45)
[2021-08-05] MEDS ORDERED: NOREPINEPHRINE 8 MG/D5W 250 ML 250 ML ONE (19:27)
[2021-08-05] MEDS: NOREPINEPHRINE 8 MG/D5W 250 ML 250 ML IV SCH (20:03)
[2021-08-05 20:34] LABS: ALBUMIN 1.9 g/dL (3.5-5.0); ALBUMIN/GLOBULIN RATIO 0.4 (0.8-2.0); ANION GAP 12.1 mmol/L (8-16); CALCIUM 9.2 mg/dL (8.4-10.2); CREATININE, SERUM 1.04 mg/dL (0.72-1.25); POTASSIUM 4.1 mmol/L (3.5-5.1)
[2021-08-05 23:25] VITALS: BP 111/78
[2021-08-05 23:30] VITALS: BP 109/77
[2021-08-06] VITALS (30 sets, daily range): BP systolic 72–126; BP diastolic 55–78
[2021-08-06] MEDS: NOREPINEPHRINE 8 MG/D5W 250 ML 250 ML IV SCH ×6 (00:54→23:07)
[2021-08-06] MEDS ORDERED: SODIUM CHLORIDE 0.9% 250ML 250 ML ONE (01:38)
[2021-08-06] MEDS: MEROPENEM 500 MG in SODIUM CHLORIDE 0.9% 50ML 50 ML IV SCH ×3 (01:51→17:09)
[2021-08-06] MEDS ORDERED: PROPOFOL IV EMULSION 10MG/ML 100 ML ONE (03:19)
[2021-08-06] MEDS: LACTOBACILLUS ACIDOPHILUS CAPSULE PO SCH ×4 (03:34→21:21)
[2021-08-06] MEDS: MIDODRINE HCL 5 MG TABLET PO SCH ×5 (03:34→17:10)
[2021-08-06] MEDS: MULTIVITAMINS/MINERALS TAB GT SCH (03:35)
[2021-08-06] MEDS: ASPIRIN 81 MG CHEW TAB GT SCH (03:35)
[2021-08-06] MEDS: FAMOTIDINE 20 MG TAB GT SCH (03:35)
[2021-08-06] MEDS: LEVOTHYROXINE SODIUM 112 MCG TAB PO SCH ×2 (03:35→06:22)
[2021-08-06] MEDS: PROPOFOL IV EMULSION 10MG/ML 100 ML IV PRN ×4 (04:00→23:08)
[2021-08-06 08:16] LABS: BASOPHILS # (AUTO) 0.1 (0.0-0.1); BASOPHILS % 0.7 % (0.0-1.0); EOSINOPHILS # (AUTO) 0.1 (0.0-0.4); EOSINOPHILS % 0.7 % (0.0-6.0); HEMATOCRIT 28.8 % (38.2-49.6); HEMOGLOBIN 9.1 g/dL (14.0-18.0); LYMPHOCYTES # (AUTO) 1.2 (1.0-3.2); LYMPHOCYTES % 6.3 % (18.0-39.1); MEAN CORPUSCULAR HEMOGLOBIN 30.4 pg (28-32); MEAN CORPUSCULAR HGB CONC 31.6 g/dL (31-35); MEAN CORPUSCULAR VOLUME 96.3 fL (81-99); MONOCYTES # (AUTO) 0.6 (0.2-0.8); MONOCYTES % 3.1 % (4.4-11.3); NEUTROPHILS # (AUTO) 17.3 (2.1-6.9); NEUTROPHILS % 88.7 % (38.7-80.0); PLATELET COUNT 371 x10e3/uL (140-360); RED BLOOD COUNT 2.99 x10e6/uL (4.3-5.7); RED CELL DISTRIBUTION WIDTH 14.2 % (11.7-14.4)
[2021-08-06 08:33] LABS: ANION GAP 11.3 mmol/L (8-16); CALCIUM 9.9 mg/dL (8.4-10.2); CREATININE, SERUM 1.03 mg/dL (0.72-1.25); POTASSIUM 4.3 mmol/L (3.5-5.1)
[2021-08-06] MEDS: LEVOFLOXACIN 500MG/D5W 100ML 100 ML IV SCH (15:27)
[2021-08-06] MEDS ORDERED: Vancomycin IV 1 GM in SODIUM CHLORIDE 0.9% 250ML 250 ML IV SCH (17:00)
[2021-08-06 17:09] LABS: ABG HCO3 24 mmol/L (22-26); ABG PCO2 38 mmHg (35-45); ABG PH 7.42 (7.35-7.45); ABG PO2 145 mmHg (80-105); ABG TCO2 26
[2021-08-06] MEDS: ENOXAPARIN 30 MG/0.3 ML SYR SC SCH (17:10)
[2021-08-07] VITALS (25 sets, daily range): BP systolic 78–144; BP diastolic 52–87
[2021-08-07] MEDS: MIDODRINE HCL 5 MG TABLET PO SCH ×5 (01:14→23:52)
[2021-08-07] MEDS: MEROPENEM 500 MG in SODIUM CHLORIDE 0.9% 50ML 50 ML IV SCH ×3 (01:14→17:16)
[2021-08-07] MEDS: PROPOFOL IV EMULSION 10MG/ML 100 ML IV PRN ×2 (04:23→06:18)
[2021-08-07 04:35] LABS: BASOPHILS # (AUTO) 0.1 (0.0-0.1); BASOPHILS % 0.7 % (0.0-1.0); EOSINOPHILS # (AUTO) 0.3 (0.0-0.4); EOSINOPHILS % 2.2 % (0.0-6.0); HEMATOCRIT 26.4 % (38.2-49.6); HEMOGLOBIN 8.4 g/dL (14.0-18.0); LYMPHOCYTES # (AUTO) 1.2 (1.0-3.2); MEAN CORPUSCULAR HEMOGLOBIN 30.2 pg (28-32); MEAN CORPUSCULAR HGB CONC 31.8 g/dL (31-35); MONOCYTES # (AUTO) 0.6 (0.2-0.8); MONOCYTES % 4.8 % (4.4-11.3); NEUTROPHILS # (AUTO) 9.6 (2.1-6.9); NEUTROPHILS % 81.9 % (38.7-80.0); PLATELET COUNT 343 x10e3/uL (140-360); RED BLOOD COUNT 2.78 x10e6/uL (4.3-5.7); RED CELL DISTRIBUTION WIDTH 14.1 % (11.7-14.4)
[2021-08-07] MEDS: LEVOTHYROXINE SODIUM 112 MCG TAB PO SCH (05:45)
[2021-08-07] MEDS: NOREPINEPHRINE 8 MG/D5W 250 ML 250 ML IV SCH (06:17)
[2021-08-07 06:28] LABS: ALBUMIN 1.9 g/dL (3.5-5.0); ALBUMIN/GLOBULIN RATIO 0.3 (0.8-2.0); ANION GAP 11.6 mmol/L (8-16); CALCIUM 9.8 mg/dL (8.4-10.2); CREATININE, SERUM 0.91 mg/dL (0.72-1.25); POTASSIUM 3.6 mmol/L (3.5-5.1)
[2021-08-07] MEDS: FAMOTIDINE 20 MG TAB GT SCH (09:56)
[2021-08-07] MEDS: LACTOBACILLUS ACIDOPHILUS CAPSULE PO SCH ×3 (09:56→21:38)
[2021-08-07] MEDS: MULTIVITAMINS/MINERALS TAB GT SCH (09:56)
[2021-08-07] MEDS: ASPIRIN 81 MG CHEW TAB GT SCH (09:56)
[2021-08-07 14:20] LABS: ABG HCO3 26 mmol/L (22-26); ABG PCO2 43 mmHg (35-45); ABG PO2 150 mmHg (80-105); ABG TCO2 28
[2021-08-07] MEDS: LEVOFLOXACIN 500MG/D5W 100ML 100 ML IV SCH (14:32)
[2021-08-07] MEDS: ENOXAPARIN 30 MG/0.3 ML SYR SC SCH (17:17)
[2021-08-08] VITALS (24 sets, daily range): BP systolic 83–123; BP diastolic 57–73
[2021-08-08] MEDS: MEROPENEM 500 MG in SODIUM CHLORIDE 0.9% 50ML 50 ML IV SCH ×3 (01:06→17:15)
[2021-08-08 06:06] LABS: BASOPHILS # (AUTO) 0.1 (0.0-0.1); BASOPHILS % 0.6 % (0.0-1.0); EOSINOPHILS # (AUTO) 0.3 (0.0-0.4); EOSINOPHILS % 3.2 % (0.0-6.0); HEMATOCRIT 25.8 % (38.2-49.6); HEMOGLOBIN 8.1 g/dL (14.0-18.0); LYMPHOCYTES # (AUTO) 1.3 (1.0-3.2); LYMPHOCYTES % 15.3 % (18.0-39.1); MEAN CORPUSCULAR HEMOGLOBIN 30.1 pg (28-32); MEAN CORPUSCULAR HGB CONC 31.4 g/dL (31-35); MEAN CORPUSCULAR VOLUME 95.9 fL (81-99); MONOCYTES # (AUTO) 0.5 (0.2-0.8); MONOCYTES % 6.2 % (4.4-11.3); NEUTROPHILS # (AUTO) 6.1 (2.1-6.9); NEUTROPHILS % 74.2 % (38.7-80.0); PLATELET COUNT 354 x10e3/uL (140-360); RED BLOOD COUNT 2.69 x10e6/uL (4.3-5.7); RED CELL DISTRIBUTION WIDTH 14.1 % (11.7-14.4)
[2021-08-08] MEDS: MIDODRINE HCL 5 MG TABLET PO SCH ×4 (06:24→23:58)
[2021-08-08] MEDS: LEVOTHYROXINE SODIUM 112 MCG TAB PO SCH (06:24)
[2021-08-08 06:35] LABS: ALBUMIN 1.8 g/dL (3.5-5.0); ALBUMIN/GLOBULIN RATIO 0.3 (0.8-2.0); ANION GAP 11.5 mmol/L (8-16); CALCIUM 9.5 mg/dL (8.4-10.2); CREATININE, SERUM 0.81 mg/dL (0.72-1.25); POTASSIUM 3.5 mmol/L (3.5-5.1)
[2021-08-08] MEDS: ASPIRIN 81 MG CHEW TAB GT SCH (08:55)
[2021-08-08] MEDS: LACTOBACILLUS ACIDOPHILUS CAPSULE PO SCH ×3 (08:56→21:00)
[2021-08-08] MEDS: FAMOTIDINE 20 MG TAB GT SCH (08:56)
[2021-08-08] MEDS: MULTIVITAMINS/MINERALS TAB GT SCH (08:56)
[2021-08-08] MEDS: LEVOFLOXACIN 500MG/D5W 100ML 100 ML IV SCH (13:24)
[2021-08-08] MEDS: ENOXAPARIN 30 MG/0.3 ML SYR SC SCH (17:15)
[2021-08-08] MEDS: NOREPINEPHRINE 8 MG/D5W 250 ML 250 ML IV SCH (19:30)
[2021-08-08] MEDS ORDERED: FENTANYL 2000MCG/NS 250 250 ML IV PRN (23:00)
[2021-08-09] VITALS (16 sets, daily range): BP systolic 84–120; BP diastolic 60–77
[2021-08-09] MEDS: MEROPENEM 500 MG in SODIUM CHLORIDE 0.9% 50ML 50 ML IV SCH ×2 (01:11→09:19)
[2021-08-09] MEDS: LEVOTHYROXINE SODIUM 112 MCG TAB PO SCH (06:05)
[2021-08-09] MEDS: MIDODRINE HCL 5 MG TABLET PO SCH ×3 (06:05→17:25)
[2021-08-09] MEDS: MULTIVITAMINS/MINERALS TAB GT SCH (09:19)
[2021-08-09] MEDS: FAMOTIDINE 20 MG TAB GT SCH (09:19)
[2021-08-09] MEDS: ASPIRIN 81 MG CHEW TAB GT SCH (09:19)
[2021-08-09] MEDS: LACTOBACILLUS ACIDOPHILUS CAPSULE PO SCH ×3 (09:19→21:15)
[2021-08-09] MEDS: LEVOFLOXACIN 500MG/D5W 100ML 100 ML IV SCH (16:12)
[2021-08-09] MEDS: ENOXAPARIN 30 MG/0.3 ML SYR SC SCH (16:12)
[2021-08-09] MEDS ORDERED: SODIUM CHLORIDE 0.9% 250ML 250 ML ONE (16:25)
[2021-08-09] MEDS: NOREPINEPHRINE 8 MG/D5W 250 ML 250 ML IV SCH (17:30)
[2021-08-10] VITALS (19 sets, daily range): BP systolic 84–110; BP diastolic 60–73
[2021-08-10] MEDS: MIDODRINE HCL 5 MG TABLET PO SCH ×5 (00:34→23:26)
[2021-08-10] MEDS: NOREPINEPHRINE 8 MG/D5W 250 ML 250 ML IV SCH (02:07)
[2021-08-10] MEDS: LEVOTHYROXINE SODIUM 112 MCG TAB PO SCH (05:40)
[2021-08-10 09:06] LABS: BASOPHILS # (AUTO) 0.1 (0.0-0.1); BASOPHILS % 1.1 % (0.0-1.0); EOSINOPHILS # (AUTO) 0.3 (0.0-0.4); EOSINOPHILS % 5.2 % (0.0-6.0); HEMATOCRIT 26.3 % (38.2-49.6); HEMOGLOBIN 8.4 g/dL (14.0-18.0); LYMPHOCYTES # (AUTO) 1.1 (1.0-3.2); LYMPHOCYTES % 18.9 % (18.0-39.1); MEAN CORPUSCULAR HEMOGLOBIN 30.7 pg (28-32); MEAN CORPUSCULAR HGB CONC 31.9 g/dL (31-35); MONOCYTES # (AUTO) 0.4 (0.2-0.8); MONOCYTES % 7.7 % (4.4-11.3); NEUTROPHILS # (AUTO) 3.7 (2.1-6.9); NEUTROPHILS % 66.6 % (38.7-80.0); PLATELET COUNT 400 x10e3/uL (140-360); RED BLOOD COUNT 2.74 x10e6/uL (4.3-5.7); RED CELL DISTRIBUTION WIDTH 13.9 % (11.7-14.4)
[2021-08-10] MEDS: MULTIVITAMINS/MINERALS TAB GT SCH (09:13)
[2021-08-10] MEDS: FAMOTIDINE 20 MG TAB GT SCH (09:13)
[2021-08-10] MEDS: ASPIRIN 81 MG CHEW TAB GT SCH (09:13)
[2021-08-10] MEDS: LACTOBACILLUS ACIDOPHILUS CAPSULE PO SCH ×3 (09:14→21:16)
[2021-08-10 09:50] LABS: ANION GAP 11.1 mmol/L (8-16); CALCIUM 9.1 mg/dL (8.4-10.2); CREATININE, SERUM 0.63 mg/dL (0.72-1.25); POTASSIUM 4.1 mmol/L (3.5-5.1)
[2021-08-10] MEDS: LEVOFLOXACIN 500MG/D5W 100ML 100 ML IV SCH (14:53)
[2021-08-10] MEDS: ENOXAPARIN 30 MG/0.3 ML SYR SC SCH (18:00)
[2021-08-11] VITALS (25 sets, daily range): BP systolic 84–125; BP diastolic 58–79
[2021-08-11] MEDS: MIDODRINE HCL 5 MG TABLET PO SCH ×4 (05:18→18:43)
[2021-08-11] MEDS: LEVOTHYROXINE SODIUM 112 MCG TAB PO SCH (05:19)
[2021-08-11 05:40] LABS: BASOPHILS # (AUTO) 0.1 (0.0-0.1); BASOPHILS % 1.4 % (0.0-1.0); EOSINOPHILS # (AUTO) 0.3 (0.0-0.4); EOSINOPHILS % 4.7 % (0.0-6.0); HEMATOCRIT 27.3 % (38.2-49.6); HEMOGLOBIN 8.8 g/dL (14.0-18.0); LYMPHOCYTES # (AUTO) 1.4 (1.0-3.2); LYMPHOCYTES % 24.3 % (18.0-39.1); MEAN CORPUSCULAR HEMOGLOBIN 30.6 pg (28-32); MEAN CORPUSCULAR HGB CONC 32.2 g/dL (31-35); MEAN CORPUSCULAR VOLUME 94.8 fL (81-99); MONOCYTES # (AUTO) 0.5 (0.2-0.8); NEUTROPHILS # (AUTO) 3.5 (2.1-6.9); NEUTROPHILS % 60.9 % (38.7-80.0); PLATELET COUNT 420 x10e3/uL (140-360); RED BLOOD COUNT 2.88 x10e6/uL (4.3-5.7); RED CELL DISTRIBUTION WIDTH 13.9 % (11.7-14.4)
[2021-08-11 06:06] LABS: ANION GAP 11.2 mmol/L (8-16); CALCIUM 9.4 mg/dL (8.4-10.2); CREATININE, SERUM 0.67 mg/dL (0.72-1.25); POTASSIUM 4.2 mmol/L (3.5-5.1)
[2021-08-11] MEDS: MULTIVITAMINS/MINERALS TAB GT SCH (09:19)
[2021-08-11] MEDS: LACTOBACILLUS ACIDOPHILUS CAPSULE PO SCH ×3 (09:19→21:01)
[2021-08-11] MEDS: ASPIRIN 81 MG CHEW TAB GT SCH (09:19)
[2021-08-11] MEDS: FAMOTIDINE 20 MG TAB GT SCH (09:19)
[2021-08-11] MEDS: LEVOFLOXACIN 500MG/D5W 100ML 100 ML IV SCH (15:50)
[2021-08-11] MEDS: ENOXAPARIN 30 MG/0.3 ML SYR SC SCH (18:43)
[2021-08-11] MEDS: NOREPINEPHRINE 8 MG/D5W 250 ML 250 ML IV SCH (19:30)
[2021-08-12] VITALS (17 sets, daily range): BP systolic 85–112; BP diastolic 54–80
[2021-08-12] MEDS: LEVOTHYROXINE SODIUM 112 MCG TAB PO SCH (05:24)
[2021-08-12] MEDS: MIDODRINE HCL 5 MG TABLET PO SCH ×3 (05:24→18:31)
[2021-08-12 06:03] LABS: BASOPHILS # (AUTO) 0.1 (0.0-0.1); BASOPHILS % 0.6 % (0.0-1.0); EOSINOPHILS # (AUTO) 0.2 (0.0-0.4); EOSINOPHILS % 1.7 % (0.0-6.0); HEMATOCRIT 27.3 % (38.2-49.6); LYMPHOCYTES # (AUTO) 1.3 (1.0-3.2); MEAN CORPUSCULAR HEMOGLOBIN 30.3 pg (28-32); MEAN CORPUSCULAR VOLUME 91.9 fL (81-99); MONOCYTES # (AUTO) 0.6 (0.2-0.8); MONOCYTES % 5.8 % (4.4-11.3); NEUTROPHILS # (AUTO) 8.4 (2.1-6.9); NEUTROPHILS % 79.3 % (38.7-80.0); PLATELET COUNT 463 x10e3/uL (140-360); RED BLOOD COUNT 2.97 x10e6/uL (4.3-5.7); RED CELL DISTRIBUTION WIDTH 14.2 % (11.7-14.4)
[2021-08-12 06:15] LABS: ALBUMIN 2.2 g/dL (3.5-5.0); ALBUMIN/GLOBULIN RATIO 0.4 (0.8-2.0); ANION GAP 14.4 mmol/L (8-16); CALCIUM 9.7 mg/dL (8.4-10.2); CREATININE, SERUM 0.66 mg/dL (0.72-1.25); POTASSIUM 4.4 mmol/L (3.5-5.1)
[2021-08-12] MEDS: ASPIRIN 81 MG CHEW TAB GT SCH (09:09)
[2021-08-12] MEDS: FAMOTIDINE 20 MG TAB GT SCH (09:09)
[2021-08-12] MEDS: MULTIVITAMINS/MINERALS TAB GT SCH (09:09)
[2021-08-12] MEDS: LACTOBACILLUS ACIDOPHILUS CAPSULE PO SCH ×3 (09:09→21:28)
[2021-08-12] MEDS: LEVOFLOXACIN 500MG/D5W 100ML 100 ML IV SCH (14:12)
[2021-08-12] MEDS: ENOXAPARIN 30 MG/0.3 ML SYR SC SCH (16:51)
[2021-08-13] VITALS (9 sets, daily range): BP systolic 82–114; BP diastolic 59–82
[2021-08-13] MEDS: MIDODRINE HCL 5 MG TABLET PO SCH ×5 (00:08→23:30)
[2021-08-13] MEDS: SCOPOLAMINE 1.5 MG PATCH TOP SCH (03:40)
[2021-08-13] MEDS: LEVOTHYROXINE SODIUM 112 MCG TAB PO SCH (05:33)
[2021-08-13] MEDS: QUETIAPINE FUMARATE 25 MG TAB PO SCH ×3 (05:33→17:29)
[2021-08-13] MEDS: LACTOBACILLUS ACIDOPHILUS CAPSULE PO SCH ×2 (05:45→17:29)
[2021-08-13] MEDS ORDERED: LACTOBACILLUS ACIDOPHILUS CAPSULE PO SCH (09:00)
[2021-08-13] MEDS: ASPIRIN 81 MG CHEW TAB GT SCH (09:33)
[2021-08-13] MEDS: FAMOTIDINE 20 MG TAB GT SCH (09:33)
[2021-08-13] MEDS: MULTIVITAMINS/MINERALS TAB GT SCH (09:33)
[2021-08-13] MEDS ORDERED: SODIUM CHLORIDE 0.9% 100 ML ONE (16:20)
[2021-08-13] MEDS: LEVOFLOXACIN 500MG/D5W 100ML 100 ML IV SCH (16:22)
[2021-08-14] VITALS (13 sets, daily range): BP systolic 82–165; BP diastolic 51–79
[2021-08-14] MEDS: QUETIAPINE FUMARATE 25 MG TAB PO SCH ×4 (06:00→18:00)
[2021-08-14 06:08] LABS: BASOPHILS # (AUTO) 0.1 (0.0-0.1); BASOPHILS % 1.2 % (0.0-1.0); EOSINOPHILS # (AUTO) 0.2 (0.0-0.4); EOSINOPHILS % 2.5 % (0.0-6.0); HEMATOCRIT 26.1 % (38.2-49.6); HEMOGLOBIN 8.6 g/dL (14.0-18.0); LYMPHOCYTES % 13.2 % (18.0-39.1); MEAN CORPUSCULAR HEMOGLOBIN 30.6 pg (28-32); MEAN CORPUSCULAR VOLUME 92.9 fL (81-99); MONOCYTES # (AUTO) 0.7 (0.2-0.8); MONOCYTES % 8.9 % (4.4-11.3); NEUTROPHILS # (AUTO) 5.6 (2.1-6.9); NEUTROPHILS % 73.7 % (38.7-80.0); PLATELET COUNT 465 x10e3/uL (140-360); RED BLOOD COUNT 2.81 x10e6/uL (4.3-5.7); RED CELL DISTRIBUTION WIDTH 14.6 % (11.7-14.4)
[2021-08-14] MEDS: LEVOTHYROXINE SODIUM 112 MCG TAB PO SCH (06:15)
[2021-08-14] MEDS: LACTOBACILLUS ACIDOPHILUS CAPSULE PO SCH ×2 (06:15→19:17)
[2021-08-14] MEDS: MIDODRINE HCL 5 MG TABLET PO SCH ×4 (06:15→19:17)
[2021-08-14 06:36] LABS: ANION GAP 12.5 mmol/L (8-16); CALCIUM 10.4 mg/dL (8.4-10.2); CREATININE, SERUM 0.73 mg/dL (0.72-1.25); POTASSIUM 4.5 mmol/L (3.5-5.1)
[2021-08-14] MEDS ORDERED: CLOPIDOGREL BISULFATE 75 MG TAB PO ONE (10:30)
[2021-08-14] MEDS: ASPIRIN 81 MG CHEW TAB GT SCH ×2 (11:13→11:46)
[2021-08-14] MEDS: MULTIVITAMINS/MINERALS TAB GT SCH ×2 (11:13→11:46)
[2021-08-14] MEDS: FAMOTIDINE 20 MG TAB GT SCH ×2 (11:13→11:46)
[2021-08-14] MEDS: EYE LUBRICANT OPTH OINT 3.5GM TUBE OP SCH ×2 (13:00→18:43)
[2021-08-14] MEDS: LEVOFLOXACIN 500MG/D5W 100ML 100 ML IV SCH (15:21)
[2021-08-15] VITALS (25 sets, daily range): BP systolic 82–158; BP diastolic 60–96
[2021-08-15] MEDS: MIDODRINE HCL 5 MG TABLET PO SCH ×4 (00:23→17:08)
[2021-08-15] MEDS: QUETIAPINE FUMARATE 25 MG TAB PO SCH ×4 (00:23→17:09)
[2021-08-15] MEDS: LEVOTHYROXINE SODIUM 112 MCG TAB PO SCH (06:06)
[2021-08-15] MEDS: LACTOBACILLUS ACIDOPHILUS CAPSULE PO SCH ×2 (06:06→17:08)
[2021-08-15] MEDS: MULTIVITAMINS/MINERALS TAB GT SCH (08:46)
[2021-08-15] MEDS: ASPIRIN 81 MG CHEW TAB GT SCH (08:46)
[2021-08-15] MEDS: FAMOTIDINE 20 MG TAB GT SCH (08:46)
[2021-08-15] MEDS: EYE LUBRICANT OPTH OINT 3.5GM TUBE OP SCH ×2 (08:47→16:46)
[2021-08-15] MEDS ORDERED: CLOPIDOGREL BISULFATE 75 MG TAB PO SCH (09:00)
[2021-08-15] MEDS: LEVOFLOXACIN 500MG/D5W 100ML 100 ML IV SCH (16:07)
[2021-08-16] VITALS (24 sets, daily range): BP systolic 91–122; BP diastolic 62–76
[2021-08-16] MEDS: MIDODRINE HCL 5 MG TABLET PO SCH ×4 (00:20→17:02)
[2021-08-16] MEDS: QUETIAPINE FUMARATE 25 MG TAB PO SCH ×4 (00:20→17:02)
[2021-08-16 06:05] LABS: BASOPHILS # (AUTO) 0.1 (0.0-0.1); BASOPHILS % 0.8 % (0.0-1.0); EOSINOPHILS # (AUTO) 0.2 (0.0-0.4); EOSINOPHILS % 2.6 % (0.0-6.0); HEMOGLOBIN 8.7 g/dL (14.0-18.0); LYMPHOCYTES # (AUTO) 1.3 (1.0-3.2); LYMPHOCYTES % 15.4 % (18.0-39.1); MEAN CORPUSCULAR HEMOGLOBIN 30.2 pg (28-32); MEAN CORPUSCULAR HGB CONC 32.2 g/dL (31-35); MEAN CORPUSCULAR VOLUME 93.8 fL (81-99); MONOCYTES # (AUTO) 0.7 (0.2-0.8); MONOCYTES % 7.8 % (4.4-11.3); NEUTROPHILS # (AUTO) 6.1 (2.1-6.9); NEUTROPHILS % 72.8 % (38.7-80.0); PLATELET COUNT 452 x10e3/uL (140-360); RED BLOOD COUNT 2.88 x10e6/uL (4.3-5.7); RED CELL DISTRIBUTION WIDTH 15.4 % (11.7-14.4)
[2021-08-16] MEDS: SCOPOLAMINE 1.5 MG PATCH TOP SCH (06:24)
[2021-08-16] MEDS: LEVOTHYROXINE SODIUM 112 MCG TAB PO SCH (06:24)
[2021-08-16] MEDS: LACTOBACILLUS ACIDOPHILUS CAPSULE PO SCH ×2 (06:24→17:02)
[2021-08-16 07:01] LABS: ALBUMIN 2.5 g/dL (3.5-5.0); ALBUMIN/GLOBULIN RATIO 0.4 (0.8-2.0); ANION GAP 13.7 mmol/L (8-16); CALCIUM 10.6 mg/dL (8.4-10.2); CREATININE, SERUM 0.8 mg/dL (0.72-1.25); POTASSIUM 4.7 mmol/L (3.5-5.1)
[2021-08-16] MEDS: ASPIRIN 81 MG CHEW TAB GT SCH (10:36)
[2021-08-16] MEDS: MULTIVITAMINS/MINERALS TAB GT SCH (10:36)
[2021-08-16] MEDS: EYE LUBRICANT OPTH OINT 3.5GM TUBE OP SCH ×2 (10:36→17:02)
[2021-08-16] MEDS: FAMOTIDINE 20 MG TAB GT SCH (10:36)
[2021-08-17] VITALS (26 sets, daily range): BP systolic 82–124; BP diastolic 65–109
[2021-08-17] MEDS: QUETIAPINE FUMARATE 25 MG TAB PO SCH ×4 (02:30→18:43)
[2021-08-17] MEDS: MIDODRINE HCL 5 MG TABLET PO SCH ×4 (02:30→18:43)
[2021-08-17] MEDS: LEVOTHYROXINE SODIUM 112 MCG TAB PO SCH (06:44)
[2021-08-17] MEDS: LACTOBACILLUS ACIDOPHILUS CAPSULE PO SCH ×2 (06:44→18:43)
[2021-08-17 07:46] LABS: BASOPHILS # (AUTO) 0.1 (0.0-0.1); BASOPHILS % 0.9 % (0.0-1.0); EOSINOPHILS # (AUTO) 0.2 (0.0-0.4); EOSINOPHILS % 1.8 % (0.0-6.0); HEMATOCRIT 29.7 % (38.2-49.6); HEMOGLOBIN 9.2 g/dL (14.0-18.0); LYMPHOCYTES # (AUTO) 1.2 (1.0-3.2); LYMPHOCYTES % 10.3 % (18.0-39.1); MEAN CORPUSCULAR HEMOGLOBIN 30.1 pg (28-32); MEAN CORPUSCULAR VOLUME 97.1 fL (81-99); MONOCYTES # (AUTO) 0.7 (0.2-0.8); MONOCYTES % 6.1 % (4.4-11.3); NEUTROPHILS # (AUTO) 9.2 (2.1-6.9); NEUTROPHILS % 80.5 % (38.7-80.0); PLATELET COUNT 468 x10e3/uL (140-360); RED BLOOD COUNT 3.06 x10e6/uL (4.3-5.7); RED CELL DISTRIBUTION WIDTH 15.7 % (11.7-14.4)
[2021-08-17 07:59] LABS: ANION GAP 15.8 mmol/L (8-16); CALCIUM 10.7 mg/dL (8.4-10.2); CREATININE, SERUM 0.99 mg/dL (0.72-1.25); POTASSIUM 4.8 mmol/L (3.5-5.1)
[2021-08-17] MEDS: ASPIRIN 81 MG CHEW TAB GT SCH (09:15)
[2021-08-17] MEDS: MULTIVITAMINS/MINERALS TAB GT SCH (09:15)
[2021-08-17] MEDS: EYE LUBRICANT OPTH OINT 3.5GM TUBE OP SCH ×2 (09:15→18:43)
[2021-08-17] MEDS: FAMOTIDINE 20 MG TAB GT SCH (09:15)
[2021-08-17] MEDS: LEVOFLOXACIN 500MG/D5W 100ML 100 ML IV SCH (10:22)
[2021-08-18] VITALS (21 sets, daily range): BP systolic 94–112; BP diastolic 65–83
[2021-08-18] MEDS: MIDODRINE HCL 5 MG TABLET PO SCH ×4 (00:30→17:24)
[2021-08-18] MEDS: QUETIAPINE FUMARATE 25 MG TAB PO SCH ×4 (00:30→17:26)
[2021-08-18] MEDS: LACTOBACILLUS ACIDOPHILUS CAPSULE PO SCH ×2 (06:00→17:24)
[2021-08-18] MEDS: LEVOTHYROXINE SODIUM 112 MCG TAB PO SCH (06:00)
[2021-08-18 07:57] LABS: BASOPHILS # (AUTO) 0.1 (0.0-0.1); BASOPHILS % 0.7 % (0.0-1.0); EOSINOPHILS # (AUTO) 0.2 (0.0-0.4); EOSINOPHILS % 1.5 % (0.0-6.0); HEMATOCRIT 28.8 % (38.2-49.6); HEMOGLOBIN 9.2 g/dL (14.0-18.0); LYMPHOCYTES # (AUTO) 1.1 (1.0-3.2); LYMPHOCYTES % 9.5 % (18.0-39.1); MEAN CORPUSCULAR HEMOGLOBIN 30.7 pg (28-32); MEAN CORPUSCULAR HGB CONC 31.9 g/dL (31-35); MONOCYTES # (AUTO) 0.8 (0.2-0.8); MONOCYTES % 6.7 % (4.4-11.3); NEUTROPHILS # (AUTO) 9.2 (2.1-6.9); NEUTROPHILS % 81.2 % (38.7-80.0); PLATELET COUNT 420 x10e3/uL (140-360); RED CELL DISTRIBUTION WIDTH 15.8 % (11.7-14.4)
[2021-08-18 08:19] LABS: ANION GAP 14.6 mmol/L (8-16); CREATININE, SERUM 1.12 mg/dL (0.72-1.25); POTASSIUM 4.6 mmol/L (3.5-5.1)
[2021-08-18] MEDS: MULTIVITAMINS/MINERALS TAB GT SCH (09:18)
[2021-08-18] MEDS: FAMOTIDINE 20 MG TAB GT SCH (09:18)
[2021-08-18] MEDS: ASPIRIN 81 MG CHEW TAB GT SCH (09:18)
[2021-08-18] MEDS: EYE LUBRICANT OPTH OINT 3.5GM TUBE OP SCH ×2 (09:19→17:23)
[2021-08-18] MEDS: LEVOFLOXACIN 500MG/D5W 100ML 100 ML IV SCH (09:21)
== END 2021-08-18 19:49 | DRG 871 ==
LOC: ER 13:50 → ERHOLD 17:40 → ICU 23:42 → MED/SURG 08-12 18:03 → IMCU 08-12 18:09 → ICU 08-14 23:53
PROVIDERS: ADMIT Internal Medicine; ATTEND Internal Medicine
PROC: 02HV33Z Insertion of Infusion Device into Superior Vena Cava, Percutaneous Approach (ICD-10-PCS; 2021-08-05)
PROC: 5A1945Z Respiratory Ventilation, 24-96 Consecutive Hours (ICD-10-PCS; principal; 2021-08-06)
PROC: 02HV33Z Insertion of Infusion Device into Superior Vena Cava, Percutaneous Approach (ICD-10-PCS; 2021-08-11)
PROC: 5A1935Z Respiratory Ventilation, Less than 24 Consecutive Hours (ICD-10-PCS; 2021-08-11)
PROC: 5A1935Z Respiratory Ventilation, Less than 24 Consecutive Hours (ICD-10-PCS; 2021-08-14)
PROC: 5A1935Z Respiratory Ventilation, Less than 24 Consecutive Hours (ICD-10-PCS; 2021-08-15)
DX: A41.9 Sepsis, unspecified organism (principal); R65.21 Severe sepsis with septic shock; E43 Unspecified severe protein-calorie malnutrition; J15.8 Pneumonia due to other specified bacteria; J96.21 Acute and chronic respiratory failure with hypoxia; J96.22 Acute and chronic respiratory failure with hypercapnia; Z68.1 Body mass index [BMI] 19.9 or less, adult; N17.9 Acute kidney failure, unspecified; N39.0 Urinary tract infection, site not specified; I50.22 Chronic systolic (congestive) heart failure; I48.20 Chronic atrial fibrillation, unspecified; C76.0 Malignant neoplasm of head, face and neck; I11.0 Hypertensive heart disease with heart failure; E87.5 Hyperkalemia; E83.52 Hypercalcemia; R74.01 Elevation of levels of liver transaminase levels; E86.0 Dehydration; E03.9 Hypothyroidism, unspecified; Z79.01 Long term (current) use of anticoagulants
CPT/HCPCS: 36415; 36569; 36600; 71045; 80048; 80053; 81001; 82550; 82553; 82805; 82948; 83605; 83735; 83880; 84484; 85025; 85610; 85730; 87040; 87070; 87086; 87186; 87205; 93005; 94002; 94003; 94640; 94760; 99251; 99285; J0456; J1650; J1956; J2185; J3370; J7030; J7050; U0002